=== PATIENT | male | born 2000 | race Caucasian/White ===

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

== ENCOUNTER 2019-01-05 16:28 | Emergency (ER) | payer OTHER ==
[~2019-01-05] VITALS: Ht 172.7 cm; Wt 68.2 kg
[2019-01-05 16:34] VITALS: BP 127/66
--- NOTE | 2019-01-05 19:15 | REP ---
HISTORY: Pain after trauma. COMPARISON: None. FINDINGS: No acute fracture or destructive osseous lesion. Electronically Signed by Brayan Matt DO 01/05/2019 07:51 P
== END 2019-01-05 19:25 | disposition home or self-care (01) ==
LOC: M ED 16:28
DX: S80.11XA Contusion of right lower leg, initial encounter (principal); V49.50XA Passenger injured in collision with unspecified motor vehicles in traffic accident, initial encounter; X58.XXXA Exposure to other specified factors, initial encounter; Y99.8 Other external cause status